=== PATIENT | male | born 1965 | race Caucasian/White ===

== ENCOUNTER 2020-08-24 11:17 | Emergency (ER) | payer OTHER ==
[~2020-08-24] VITALS: Ht 175.3 cm; Wt 92.6 kg
[2020-08-24 11:18] VITALS: BP 144/84
== END 2020-08-24 12:36 | disposition home or self-care (01) ==
LOC: M ED 11:17
DX: S61.512A Laceration without foreign body of left wrist, initial encounter (principal); X50.0XXA Overexertion from strenuous movement or load, initial encounter; Y92.9 Unspecified place or not applicable; Y93.89 Activity, other specified; Y99.0 Civilian activity done for income or pay; F17.200 Nicotine dependence, unspecified, uncomplicated; Z88.0 Allergy status to penicillin